=== PATIENT | male | born 1995 | race Caucasian/White ===

== ENCOUNTER → 2019-06-09 | Outpatient (CLI) | payer OTHER | END | disposition home or self-care (01) | LOC: OIH 08:35 | PROVIDERS: ATTEND Family Medicine | DX: M91.12 Juvenile osteochondrosis of head of femur [Legg-Calve-Perthes], left leg (principal); M91.11 Juvenile osteochondrosis of head of femur [Legg-Calve-Perthes], right leg | CPT/HCPCS: 73590 ==